=== PATIENT | male | born 1970 | race Caucasian/White ===

== ENCOUNTER 2021-05-19 18:40 | Inpatient (IN) | payer MEDICAID, SELFPAY ==
[~2021-05-19] VITALS: Ht 175.3 cm; Wt 89.8 kg
[2021-05-19 18:45] VITALS: BP_SYST 108
--- NOTE | 2021-05-19 19:17 | NUR ---
Patient to ER TENT for evaluation.
--- NOTE | 2021-05-19 19:20 | NUR ---
ER at bedside examining patient.
[2021-05-19] MEDS ORDERED: LEVOFLOXACIN IN DEXTROSE 5 % 100 ML IV ONE ×2 (19:30→21:30)
[2021-05-19] MEDS ORDERED: NACL 0.9% 2,700 ML IV ONE (19:30)
[2021-05-19] MEDS ORDERED: KETOROLAC TROMETHAMINE 30 MG VIAL IVP ONE (19:30)
[2021-05-19] MEDS ORDERED: VANCOMYCIN HCL 1,000 MG in NS 250 ML IV ONE ×2 (19:30→21:30)
[2021-05-19] MEDS ORDERED: AZITHROMYCIN 500 MG in NS 250 ML IV ONE (20:00)
--- NOTE | 2021-05-19 20:07 | NUR ---
covid 19 swab done outside in tent and sent to lab
[2021-05-19 20:15] LABS: BASOPHILS # (AUTO) 0.1 K/uL (0.0-0.2); BASOPHILS % (AUTO) 1.5 % (0.0-2.0); EOSINOPHILS % (AUTO) 0.1 % (0.0-4.0); HEMATOCRIT 45.2 % (36-54); HEMOGLOBIN 15.7 g/dL (14.0-18.0); LYMPHOCYTES % (AUTO) 11.3 % (20.5-51.5); MEAN CORPUSCULAR HEMOGLOBIN 31 pg (27-31); MEAN CORPUSCULAR HGB CONC 35 % (32-36); MEAN CORPUSCULAR VOLUME 88 fL (79.0-98.0); MONOCYTES # (AUTO) 0.4 K/uL (0.0-1.0); MONOCYTES % (AUTO) 4.3 % (1.7-9.3); NEUTROPHILS % (AUTO) 82.8 % (40.0-70.0); PLATELET COUNT (AUTO) 219 K/uL (130-430); RED BLOOD CELL COUNT(AUTO) 5.13 MIL/uL (4.2-6.2); RED CELL DISTRIBUTION WIDTH 13.3 % (9.0-15.0); WHITE BLOOD COUNT (AUTO) 8.5 K/uL (4.8-10.8)
[2021-05-19 20:28] LABS: CALCIUM 8.6 mg/dL (8.4-11.0); CREATININE 1.07 mg/dL (0.55-1.30); POTASSIUM 3.9 mmol/L (3.5-5.1)
[2021-05-19 20:33] LABS: ALBUMIN 2.9 g/dL (3.4-4.8); TOTAL BILIRUBIN 0.4 mg/dL (0.0-1.0)
--- NOTE | 2021-05-19 21:06 | NUR ---
Placed in room 06 . Placed on teletypesetter monitor, blood pressure machine and pulse oximeter. To gown for exam. Side rails up. Report given to MERLE KNUTSON
--- NOTE | 2021-05-19 21:07 | NUR ---
Came in ER ambulatory from home this 51 year old male, AAOX4, breathing spontaneously with O2 at 4L/MN VIA NC, [id number]%, mild distress noted. With chief complaints of flu symptoms, fatigue, body ache/ malaise, cough x2 weeks, No known medical/ no surgical history.
[2021-05-19] MEDS ORDERED: VANCOMYCIN HCL 1000 MG/VIAL IV ONE (21:27)
--- NOTE | 2021-05-19 21:35 | NUR ---
# 20 gauge angiocath placed to right antecubital vein. Use of asceptic technique. Opsite placed over site. Blood return noted. Blood for lab drawn from site. Flushed with 10 cc of normal saline. No evidence of infiltration noted. Patient tolerated well.
--- NOTE | 2021-05-19 21:42 | NUR ---
Patient will be admitted to care of Dr. Perez as a case of Pnuemonia. Admitted to Telemetry unit. Will go to room pending, Belongings list completed. Complete and up to date summary report printed. SBAR report to be given at bedside with opportunity for questions.
--- NOTE | 2021-05-19 21:45 | NUR ---
# 20 gauge angiocath placed to left cubital vein. Use of asceptic technique. Opsite placed over site. Blood return noted. Flushed with 10 cc of normal saline. No evidence of infiltration noted. Patient tolerated well.
--- NOTE | 2021-05-19 21:55 | NUR ---
Medications given, health teaching provided and verbalized understanding
[2021-05-19] MEDS ORDERED: AZITHROMYCIN 500 MG/VIAL (ZITHROMAX) IV ONE (22:14)
--- NOTE | 2021-05-19 22:25 | NUR ---
Patient's code status is FULL CODE, paperwork completed and placed in chart.
--- NOTE | 2021-05-19 22:35 | NUR ---
Apparently hungry, snacks offered with turkey sandwich, fruits, juice and water, able to consumed 100%, tolerated well
--- NOTE | 2021-05-19 22:39 | NUR ---
Not on maintenance medication, no reconciled meds
--- NOTE | 2021-05-19 23:51 | NUR ---
Apparently diaphoretic, vital signs stable, not in distress noted, unable to urinate
--- NOTE | 2021-05-20 00:15 | NUR ---
Asleep on bed , not in distress noted
--- NOTE | 2021-05-20 01:10 | NUR ---
CONSULTATION PAGED/CALLED Reason for Consultation: PNA Person Who was Notified: RAYNE Consulting Physician: Hasmukh ESPINOSA Rn Cvicu Specialty: Ordering Physician: Nima DALLAS
--- NOTE | 2021-05-20 02:51 | NUR ---
Seen and examined by Dr. Muller pulmo
[2021-05-20] MEDS ORDERED: cefTRIAXone 1 GM VIAL ONE (03:15)
[2021-05-20] MEDS: cefTRIAXone 1 GM in D5W 50 ML IV SCH (03:17)
--- NOTE | 2021-05-20 03:17 | NUR ---
Medication given as ordered. Still no urine, encourage to take water, verbalized understanding
--- NOTE | 2021-05-20 04:17 | NUR ---
Transferred to bed and kept comfortable.
--- NOTE | 2021-05-20 05:21 | NUR ---
CONSULTATION PAGED/CALLED Reason for Consultation: PNA Person Who was Notified: RAYNE Consulting Physician: GUILHERME Central Sterile Tech Specialty: Ordering Physician: CELENA
--- NOTE | 2021-05-20 06:00 | NUR ---
Voided freely in urinal 200ml clear yellow urine, sample sent to lab
[2021-05-20 06:47] LABS: BILIRUBIN,URINE NEGATIVE (NEGATIVE); BLOOD, URINE NEGATIVE (NEGATIVE); CLARITY/URINE CLEAR (CLEAR); COLOR,URINE YELLOW (YELLOW); GLUCOSE,URINE NEGATIVE (NEGATIVE); KETONES,URINE TRACE (NEGATIVE); LEUKOCYTE ESTERASE ,URINE NEGATIVE (NEGATIVE); NITRITE, URINE NEGATIVE (NEGATIVE); PROTEIN URINE 1+ (NEGATIVE); UROBILINOGEN,URINE 0.2 (0.2-1.0)
--- NOTE | 2021-05-20 07:10 | NUR ---
Endorsed to MERLE Sullivan in stable condition for continuity of care.
--- NOTE | 2021-05-20 07:37 | NUR ---
Lab at bedside.
--- NOTE | 2021-05-20 07:40 | NUR ---
Pt asleep in [facility] attached to monitor VSS no ditress noted at this time will continue to monitor.
[2021-05-20 07:44] LABS: BASOPHILS % (AUTO) 0.3 % (0.0-2.0); EOSINOPHILS % (AUTO) 0.1 % (0.0-4.0); HEMATOCRIT 40.5 % (36-54); HEMOGLOBIN 14.1 g/dL (14.0-18.0); LYMPHOCYTES # (AUTO) 0.8 K/uL (1.0-5.5); LYMPHOCYTES % (AUTO) 9.7 % (20.5-51.5); MEAN CORPUSCULAR HEMOGLOBIN 30 pg (27-31); MEAN CORPUSCULAR HGB CONC 35 % (32-36); MEAN CORPUSCULAR VOLUME 87 fL (79.0-98.0); MONOCYTES # (AUTO) 0.4 K/uL (0.0-1.0); MONOCYTES % (AUTO) 4.5 % (1.7-9.3); NEUTROPHILS # (AUTO) 6.9 K/uL (1.8-7.7); NEUTROPHILS % (AUTO) 85.4 % (40.0-70.0); PLATELET COUNT (AUTO) 202 K/uL (130-430); RED BLOOD CELL COUNT(AUTO) 4.67 MIL/uL (4.2-6.2); WHITE BLOOD COUNT (AUTO) 8.1 K/uL (4.8-10.8)
[2021-05-20 07:50] LABS: CALCIUM 7.9 mg/dL (8.4-11.0); CREATININE 0.71 mg/dL (0.55-1.30); POTASSIUM 3.7 mmol/L (3.5-5.1)
[2021-05-20 07:54] LABS: ALBUMIN 2.4 g/dL (3.4-4.8); TOTAL BILIRUBIN 0.4 mg/dL (0.0-1.0)
--- NOTE | 2021-05-20 08:47 | NUR ---
Breakfast tray given.
[2021-05-20 10:13] LABS: C-REACTIVE PROTEIN QUANT 13.7 mg/dL (0-0.5)
--- NOTE | 2021-05-20 11:00 | NUR ---
Spoke with Dr. Perez and updated on pt conditon. Orders recieved.
--- NOTE | 2021-05-20 11:02 | NUR ---
Called RT for breathing treatment.
--- NOTE | 2021-05-20 11:11 | NUR ---
RT at bedside.
[2021-05-20 11:14] VITALS: BP_SYST 126
[2021-05-20] MEDS: IPRATROPIUM/ALBUTEROL SULFATE 3 ML AMPUL.NEB (DUONEB) INH PRN (11:18)
--- NOTE | 2021-05-20 11:36 | NUR ---
Pt resting in [facility] VSS. Pt states he feels a lot better. Will continue to monitor.
--- NOTE | 2021-05-20 14:16 | NUR ---
Lunch tray given to pt.
[2021-05-20] MEDS ORDERED: ADENOSINE 6MG/2ML VIAL ONE (15:31)
--- NOTE | 2021-05-20 15:40 | NUR ---
Pt went into SVT with rate of 200. 6mg adenosine given IV per MD order pt converted to sinus rythm 88. MD notified. Awaiting new orders.
[2021-05-20] MEDS ORDERED: ADENOSINE 6MG/2ML VIAL IVP ONE ×2 (15:45)
--- NOTE | 2021-05-20 15:59 | NUR ---
Orders recieved per Dr. Perez.
--- NOTE | 2021-05-20 16:13 | NUR ---
RT at bedside.
--- NOTE | 2021-05-20 17:04 | NUR ---
Spoke with Dr. Perez and updated on pt status. Orders recieved.
--- NOTE | 2021-05-20 17:06 | NUR ---
Orders recieved are high flow oxygen. RT at bedside.
--- NOTE | 2021-05-20 17:28 | NUR ---
Pt in prone position on high flow oxygen 35L and 60%. Sat 92% RR12
--- NOTE | 2021-05-20 18:47 | NUR ---
Pt asleep in [facility] VSS no distress noted. Attached to monitor. Will continue to monitor.
[2021-05-20] MEDS ORDERED: methylPREDNISolone SOD SUCC 40 MG/ML VIAL IVP SCH (22:00)
--- NOTE | 2021-05-20 22:24 | NUR ---
DR. VANEGAS HERE TO SEE PATIENT.
[2021-05-20] MEDS: FAMOTIDINE PF 20 MG/2 ML VIAL IVP SCH (22:50)
[2021-05-20] MEDS: AZITHROMYCIN 500 MG in NS 250 ML IV SCH (22:50)
[2021-05-20] MEDS ORDERED: FAMOTIDINE PF 20 MG/2 ML VIAL ONE (22:57)
[2021-05-20] MEDS ORDERED: methylPREDNISolone SOD SUCC/PF 62.5 MG/ML VIAL ONE (22:59)
--- NOTE | 2021-05-20 23:59 | NUR ---
Pt asleep in [facility] vital signs holding. No distress noted at this time.
[2021-05-21] VITALS (14 sets, daily range): BP systolic 106–142
--- NOTE | 2021-05-21 01:31 | NUR ---
Pt asleep in [facility] VSS no distress noted.
[2021-05-21] MEDS: cefTRIAXone 1 GM in D5W 50 ML IV SCH (02:34)
--- NOTE | 2021-05-21 04:02 | NUR ---
Pt asleep in [facility] Vital signs holding. No distress noted at this time.
--- NOTE | 2021-05-21 06:33 | NUR ---
Lab at bedside.
--- NOTE | 2021-05-21 06:41 | NUR ---
RT at bedside.
[2021-05-21] MEDS: IPRATROPIUM/ALBUTEROL SULFATE 3 ML AMPUL.NEB (DUONEB) INH PRN (06:42)
[2021-05-21 07:06] LABS: BASOPHILS % (AUTO) 0.2 % (0.0-2.0); HEMATOCRIT 42.9 % (36-54); HEMOGLOBIN 14.8 g/dL (14.0-18.0); LYMPHOCYTES # (AUTO) 0.4 K/uL (1.0-5.5); LYMPHOCYTES % (AUTO) 4.7 % (20.5-51.5); MEAN CORPUSCULAR HEMOGLOBIN 30 pg (27-31); MEAN CORPUSCULAR HGB CONC 35 % (32-36); MEAN CORPUSCULAR VOLUME 88 fL (79.0-98.0); MONOCYTES # (AUTO) 0.2 K/uL (0.0-1.0); NEUTROPHILS # (AUTO) 7.7 K/uL (1.8-7.7); NEUTROPHILS % (AUTO) 93.1 % (40.0-70.0); PLATELET COUNT (AUTO) 250 K/uL (130-430); RED BLOOD CELL COUNT(AUTO) 4.87 MIL/uL (4.2-6.2); RED CELL DISTRIBUTION WIDTH 13.2 % (9.0-15.0); WHITE BLOOD COUNT (AUTO) 8.3 K/uL (4.8-10.8)
--- NOTE | 2021-05-21 07:22 | NUR ---
Care endorsed to Renate BLOOM
--- NOTE | 2021-05-21 07:39 | NUR ---
Holmes of care received at this time, pt resting at this time, O2 88 % with high flow O2, 65 %, 35 liters, RT notified, will cont to monitor.
[2021-05-21 07:41] LABS: CALCIUM 8.8 mg/dL (8.4-11.0); CREATININE 0.79 mg/dL (0.55-1.30); POTASSIUM 3.8 mmol/L (3.5-5.1)
--- NOTE | 2021-05-21 07:45 | NUR ---
HIGH FLOW O2 increased to 100% with 40 L, O2 92 % at this time, Dr Bianchi notified
[2021-05-21 07:49] LABS: ALBUMIN 2.4 g/dL (3.4-4.8); TOTAL BILIRUBIN 0.4 mg/dL (0.0-1.0)
--- NOTE | 2021-05-21 07:56 | NUR ---
PT PROVIDED WITH BREAKFAST TRAY
--- NOTE | 2021-05-21 08:30 | NUR ---
Spoke with Dr Bianchi and notified about low O2, order received for BIPAP IOI 18 to 8, rate 20 to keep FIO2 above 92 %. repeat blood gas in 3 to 4 hours.
--- NOTE | 2021-05-21 09:00 | NUR ---
Patient will be admitted to care of [ Dr Draper ]. Admitted to [ICU ] unit. Will go to room [01]. Belongings list completed. Complete and up to date summary report printed. SBAR report to be given at bedside with opportunity for questions.
[2021-05-21 09:29] LABS: PROTHROMBIN TIME 10.5 SECS (9.5-12.5)
[2021-05-21] MEDS ORDERED: DEXAMETHASONE SOD PHOSPHATE 10 MG/ML VIAL ONE (09:30)
[2021-05-21] MEDS ORDERED: ENOXAPARIN SODIUM 40 MG/0.4 ML SYRINGE ONE (09:31)
[2021-05-21] MEDS: ENOXAPARIN SODIUM 40 MG/0.4 ML SYRINGE SUBCUT SCH (09:49)
[2021-05-21] MEDS: DEXAMETHASONE SOD PHOSPHATE 10 MG/ML VIAL IVP SCH (09:50)
--- NOTE | 2021-05-21 10:44 | NUR ---
Admission to ICU Received pt from ER on 100% NRB on gurney, then placed on high flow O2 40L 100%. Pt able to ambulate with steady gait to bed. Pt states no pain at this time but expresses concerns being anxious about admission. Provided education regarding breathing exercises and proning, pt verbalizes understanding. IV sites right AC and left AC intact, patent, no infiltration noted. Pt noted with book bag and clothing at bedside. Pt also inquired regarding Medicare insurance, will follow up with case management. Situated patient to room and call light. No other complaints at this time.
[2021-05-21 10:46] LABS: ERYTHROCYTE SEDIMENTATION RATE 66 MM/HR (0-15)
--- NOTE | 2021-05-21 10:50 | NUR ---
rt notes 1050 pt moved to ICU 1, pt was on 15L NRB while transfer. no resp distress noted. Immediately connected to HFNC 40L/100% FIO2, pt saturating 96% and HR 81. MERLE Lan at bedside.
[2021-05-21] MEDS ORDERED: ALBUTEROL MDI INHALATION 8 GM INH INH PRN (11:00)
[2021-05-21 11:05] LABS: C-REACTIVE PROTEIN QUANT 18.6 mg/dL (0-0.5)
--- NOTE | 2021-05-21 11:05 | NUR ---
CONSULT CARDIO. CONSULTING MD: David RAMIRES PERSON NOTIFIED: JARED DIALED: [phone] ORDERED BY: Nima RAMIRES
--- NOTE | 2021-05-21 11:08 | NUR ---
CONSULT ID CONSULTING MD: Hasmukh RAMOS PERSON NOTIFIED: SEYMOURRY DIALED: [phone] ORDERED BY: Nima RAMIRES
--- NOTE | 2021-05-21 11:15 | NUR ---
CONSULT PULMO. CONSULTING MD: Tasha VANEGAS PERSON NOTIFIED: DR. VANEGAS DIALED: [phone] ORDERED BY: Nima RAMIRES
--- NOTE | 2021-05-21 11:30 | NUR ---
Dr. Bianchi return call to unit and updated on pt's admission. New orders made.
--- NOTE | 2021-05-21 12:00 | NUR ---
Pt noted prone position, saturating 100%.
--- NOTE | 2021-05-21 18:30 | NUR ---
Provided pt with dinner tray. Pt educated on breathing exercises and offered incentive spirometer which pt states he will try after dinner. No other complaints at this time.
--- NOTE | 2021-05-21 19:30 | NUR ---
PM SHIFT ASSESSMENT Patient is awake and alert. Patient is current in prone position for increased O2 sat, RR even and unlabored. SR on monitor. Skin warm and dry. IV intact, no signs of infiltration noted. Safety precautions in place, call light within reach. Will continue to monitor.
--- NOTE | 2021-05-21 19:42 | NUR ---
Endorsed plan of care to RN.
[2021-05-21] MEDS: ASCORBIC ACID 500 MG TABLET PO SCH (21:00)
[2021-05-21] MEDS: AZITHROMYCIN 500 MG in NS 250 ML IV SCH (21:01)
--- NOTE | 2021-05-21 22:25 | NUR ---
DR. VANEGAS HERE TO SEE PATIENT.
[2021-05-21] MEDS: FAMOTIDINE PF 20 MG/2 ML VIAL IVP SCH (23:24)
[2021-05-22] VITALS (23 sets, daily range): BP systolic 111–137
--- NOTE | 2021-05-22 00:05 | NUR ---
Patient sleeping in prone position. VSS. Safety precautions in place, call light within reach.
[2021-05-22] MEDS: cefTRIAXone 1 GM in D5W 50 ML IV SCH (03:16)
--- NOTE | 2021-05-22 04:30 | NUR ---
CHG CHG bath given. Patient tolerated care well. Will continue to monitor.
[2021-05-22 06:34] LABS: BASOPHILS % (AUTO) 0.2 % (0.0-2.0); HEMATOCRIT 40.2 % (36-54); HEMOGLOBIN 13.6 g/dL (14.0-18.0); LYMPHOCYTES # (AUTO) 0.6 K/uL (1.0-5.5); LYMPHOCYTES % (AUTO) 4.1 % (20.5-51.5); MEAN CORPUSCULAR HEMOGLOBIN 30 pg (27-31); MEAN CORPUSCULAR HGB CONC 34 % (32-36); MEAN CORPUSCULAR VOLUME 89 fL (79.0-98.0); MONOCYTES # (AUTO) 0.6 K/uL (0.0-1.0); MONOCYTES % (AUTO) 3.8 % (1.7-9.3); NEUTROPHILS # (AUTO) 13.5 K/uL (1.8-7.7); NEUTROPHILS % (AUTO) 91.9 % (40.0-70.0); PLATELET COUNT (AUTO) 314 K/uL (130-430); RED BLOOD CELL COUNT(AUTO) 4.54 MIL/uL (4.2-6.2); RED CELL DISTRIBUTION WIDTH 13.1 % (9.0-15.0); WHITE BLOOD COUNT (AUTO) 14.7 K/uL (4.8-10.8)
--- NOTE | 2021-05-22 07:17 | NUR ---
ENDORSEMENT Patient care endorsed to dayshift RN using nursing SBAR.
--- NOTE | 2021-05-22 07:31 | NUR ---
Nutrition Update Humberto Scale 18 noted. Pt admitted for Pneumonia Diet: regular BMI: 29.4 kg/m2 RD to follow per nutrition care standards.
[2021-05-22 07:53] LABS: C-REACTIVE PROTEIN QUANT 9.9 mg/dL (0-0.5); CREATININE 0.91 mg/dL (0.55-1.30)
[2021-05-22] MEDS: DEXAMETHASONE SOD PHOSPHATE 10 MG/ML VIAL IVP SCH (07:56)
[2021-05-22] MEDS: ENOXAPARIN SODIUM 40 MG/0.4 ML SYRINGE SUBCUT SCH (07:56)
[2021-05-22] MEDS: ASCORBIC ACID 500 MG TABLET PO SCH ×2 (07:57→21:41)
[2021-05-22] MEDS: CHOLECALCIFEROL (VITAMIN D3) 5,000 UNIT TABLET PO SCH (07:57)
[2021-05-22 09:16] LABS: ERYTHROCYTE SEDIMENTATION RATE 63 MM/HR (0-15)
--- NOTE | 2021-05-22 10:16 | NUR ---
0800 PT RECIEVED AWAKE ALERT AND ORIENTED X 3/FOLLOWS COMMANDS, HR SR, AFEBRILE BUT PT DESATURATES WITH MOVEMENT AND WITHOUT OXYGEN/O2 SAT 96% AT THIS TIME, PT VERY FIDGITY BUT COOPERATIVE//MW
--- NOTE | 2021-05-22 13:17 | NUR ---
afsaneh results reported to dr Bianchi/afsaneh ordered for a.wendy//bryan
--- NOTE | 2021-05-22 19:12 | NUR ---
1830 PT MARCO HIMSELF//STATES WILL HOLD FOR HOURS/O2 SAT NOW 97%//MW
--- NOTE | 2021-05-22 19:30 | NUR ---
REPORT RECEIVED FROM DAY SHIFT NURSE. Addendum: 05/22/21 at 2320 by Beatrice Stanton RN PT IS LYING PRONE IN BED AND ON HIGH FLOW OXYGEN AT 40L/MIN WITH FIO2 OF 80%. O2 SATS 92% AND 93%. NO SOB NOTED. FALL AND SAFETY PRECAUTIONS ARE IN PLACE. DROPLET ISOLATION FOR COVID-19 MAINTAINED.
[2021-05-22] MEDS: AZITHROMYCIN 500 MG in NS 250 ML IV SCH (21:41)
[2021-05-22] MEDS: FAMOTIDINE PF 20 MG/2 ML VIAL IVP SCH (21:42)
--- NOTE | 2021-05-22 21:42 | NUR ---
SCHEDULED HS MEDICATIONS ADMINISTERED. PT DENIES PAIN OR DISCOMFORT. FALL AND SAFETY PRECAUTIONS ARE IN PLACE.
--- NOTE | 2021-05-22 23:50 | NUR ---
CHG BATH GIVEN.
[2021-05-23] VITALS (24 sets, daily range): BP systolic 96–149
[2021-05-23] MEDS: cefTRIAXone 1 GM in D5W 50 ML IV SCH (02:29)
[2021-05-23] MEDS ORDERED: ENOXAPARIN SODIUM 40 MG/0.4 ML SYRINGE SUBCUT SCH (03:00)
--- NOTE | 2021-05-23 03:20 | NUR ---
URINE SPECIMEN COLLECTED AND SENT TO THE LAB FOR DRUG SCREEN ORDERED BY DR. Hasmukh ESPINOSA.
[2021-05-23 04:01] LABS: BARBITURATE, URINE NEGATIVE (NEG <=200); BENZODIAZEPINE, URINE NEGATIVE (NEG <=150); CANNABINOID, URINE POSITIVE (NEG <=50); COCAINE, URINE NEGATIVE (NEG <=150); METHAMPHETAMINES SCREEN,URINE POSITIVE (NEG <=500); OPIATE, URINE NEGATIVE (NEG <=100); PHENCYCLIDINE SCREEN,URINE NEGATIVE (NEG <=25); UR TRICYCLIC ANTIDEPRESSANTS NEGATIVE (NEG <=300); URINE AMPHETAMINE NEGATIVE (NEG <=500); URINE METHADONE NEGATIVE (NEG <=200); URINE OXYCODONE SCREEN NEGATIVE (NEG <=100); URINE PROPOXYPHENE SCREEN NEGATIVE (NEG <=300)
[2021-05-23] MEDS: ENOXAPARIN SODIUM 40 MG/0.4 ML SYRINGE SUBCUT SCH ×2 (04:24→16:16)
[2021-05-23 06:31] LABS: BASOPHILS % (AUTO) 0.1 % (0.0-2.0); HEMOGLOBIN 13.3 g/dL (14.0-18.0); LYMPHOCYTES # (AUTO) 0.9 K/uL (1.0-5.5); LYMPHOCYTES % (AUTO) 5.2 % (20.5-51.5); MEAN CORPUSCULAR HEMOGLOBIN 30 pg (27-31); MEAN CORPUSCULAR HGB CONC 34 % (32-36); MEAN CORPUSCULAR VOLUME 88 fL (79.0-98.0); MONOCYTES # (AUTO) 0.9 K/uL (0.0-1.0); MONOCYTES % (AUTO) 5.2 % (1.7-9.3); NEUTROPHILS # (AUTO) 16.3 K/uL (1.8-7.7); NEUTROPHILS % (AUTO) 89.5 % (40.0-70.0); PLATELET COUNT (AUTO) 325 K/uL (130-430); RED BLOOD CELL COUNT(AUTO) 4.43 MIL/uL (4.2-6.2); RED CELL DISTRIBUTION WIDTH 13.2 % (9.0-15.0); WHITE BLOOD COUNT (AUTO) 18.2 K/uL (4.8-10.8)
[2021-05-23 06:33] LABS: CALCIUM 8.6 mg/dL (8.4-11.0); CREATININE 0.78 mg/dL (0.55-1.30); POTASSIUM 3.8 mmol/L (3.5-5.1)
[2021-05-23 06:39] LABS: ALBUMIN 2.3 g/dL (3.4-4.8); TOTAL BILIRUBIN 0.2 mg/dL (0.0-1.0)
--- NOTE | 2021-05-23 07:08 | NUR ---
REPORT GIVEN TO DAY SHIFT NURSE.
--- NOTE | 2021-05-23 07:30 | NUR ---
received pt in bed, gcs 15, on high flow 02 40L 100% fio2. pt saturation 95%, speaking in complete sentences. exertion sob noted. IV intact and patent SL. encouraged pt to prone, pt refused at this time.
[2021-05-23 08:11] LABS: ERYTHROCYTE SEDIMENTATION RATE 35 MM/HR (0-15)
[2021-05-23 09:17] LABS: C-REACTIVE PROTEIN QUANT 4.1 mg/dL (0-0.5)
[2021-05-23] MEDS: CHOLECALCIFEROL (VITAMIN D3) 5,000 UNIT TABLET PO SCH (09:32)
[2021-05-23] MEDS: ASCORBIC ACID 500 MG TABLET PO SCH ×2 (09:32→20:34)
[2021-05-23] MEDS: DEXAMETHASONE SOD PHOSPHATE 10 MG/ML VIAL IVP SCH (09:33)
--- NOTE | 2021-05-23 09:45 | NUR ---
PT IN PRONE POSITION, TOLERATING WELL. NAD.
--- NOTE | 2021-05-23 10:30 | NUR ---
PT WEANED TO 35L 85% FIO2 HIGH FLOW. TOLERATING WELL. WILL CONTINUE TO MONITOR.
--- NOTE | 2021-05-23 12:04 | NUR ---
RT NOTES HFNC 35L 85%, TITRATED BY RN
--- NOTE | 2021-05-23 13:00 | NUR ---
PT WEANED TO 30L 70% FIO2, SATURATION 93-94 % SPEAKING IN FULL SENTENCES. PT EATING LUNCH. NAD. SAFETY MAINTAINED.
--- NOTE | 2021-05-23 15:46 | NUR ---
RT NOTES HFNC 25L 0.60 TITRATED BY RN
--- NOTE | 2021-05-23 16:19 | NUR ---
high flow titration to 25L at 60% fio2. pt tolerating well and keeping saturation 92% and above, speaking in full sentences.
--- NOTE | 2021-05-23 18:26 | NUR ---
high flow titrated to 25L fio2 50%, saturation remains above 92% pt speaking in full sentences and denies sob.
--- NOTE | 2021-05-23 19:45 | NUR ---
HEART RATE Pt in SVT rhythm. Dr David Perez notified. Adenosine 6mg IVP now if not effective. Adenosine 12 mg after 5 minutes to be given.
--- NOTE | 2021-05-23 19:46 | NUR ---
MD ЕЛЕНА DALLAS [phone] SPOKE WITH ELSA
[2021-05-23] MEDS ORDERED: ADENOSINE 6MG/2ML VIAL ONE (19:57)
[2021-05-23] MEDS ORDERED: ADENOSINE 6MG/2ML VIAL IVP ONE (20:00)
--- NOTE | 2021-05-23 20:00 | NUR ---
HEART RATE Adenosine 6mg IVP effective. Heart rate 82.
--- NOTE | 2021-05-23 21:00 | NUR ---
CHANGE IN CAREGIVER Care changed to Caesar BLOOM.
[2021-05-23] MEDS: FAMOTIDINE PF 20 MG/2 ML VIAL IVP SCH (21:42)
[2021-05-23] MEDS: AZITHROMYCIN 500 MG in NS 250 ML IV SCH (21:42)
[2021-05-24] VITALS (23 sets, daily range): BP systolic 92–143
[2021-05-24] MEDS: cefTRIAXone 1 GM in D5W 50 ML IV SCH (02:41)
[2021-05-24] MEDS: ENOXAPARIN SODIUM 40 MG/0.4 ML SYRINGE SUBCUT SCH ×2 (05:43→16:28)
[2021-05-24 06:23] LABS: BASOPHILS # (AUTO) 0.1 K/uL (0.0-0.2); BASOPHILS % (AUTO) 0.4 % (0.0-2.0); EOSINOPHILS % (AUTO) 0.4 % (0.0-4.0); HEMATOCRIT 38.4 % (36-54); HEMOGLOBIN 13.1 g/dL (14.0-18.0); LYMPHOCYTES # (AUTO) 1.3 K/uL (1.0-5.5); LYMPHOCYTES % (AUTO) 10.6 % (20.5-51.5); MEAN CORPUSCULAR HEMOGLOBIN 30 pg (27-31); MEAN CORPUSCULAR HGB CONC 34 % (32-36); MEAN CORPUSCULAR VOLUME 88 fL (79.0-98.0); MONOCYTES # (AUTO) 0.9 K/uL (0.0-1.0); MONOCYTES % (AUTO) 7.2 % (1.7-9.3); NEUTROPHILS # (AUTO) 10.2 K/uL (1.8-7.7); NEUTROPHILS % (AUTO) 81.4 % (40.0-70.0); PLATELET COUNT (AUTO) 360 K/uL (130-430); RED BLOOD CELL COUNT(AUTO) 4.38 MIL/uL (4.2-6.2); WHITE BLOOD COUNT (AUTO) 12.5 K/uL (4.8-10.8)
[2021-05-24 06:29] LABS: CALCIUM 8.6 mg/dL (8.4-11.0); CREATININE 0.84 mg/dL (0.55-1.30); POTASSIUM 3.7 mmol/L (3.5-5.1)
[2021-05-24 06:40] LABS: ALBUMIN 2.2 g/dL (3.4-4.8); TOTAL BILIRUBIN 0.2 mg/dL (0.0-1.0)
--- NOTE | 2021-05-24 07:00 | NUR ---
received pt in bed, on high flow 02 25L 50% fio2. pt saturation 95%, speaking in complete sentences. exertion sob noted. IV intact and patent SL.
[2021-05-24 07:13] LABS: C-REACTIVE PROTEIN QUANT 4.4 mg/dL (0-0.5)
[2021-05-24] MEDS: CHOLECALCIFEROL (VITAMIN D3) 5,000 UNIT TABLET PO SCH (08:32)
[2021-05-24] MEDS: ASCORBIC ACID 500 MG TABLET PO SCH ×2 (08:32→21:58)
[2021-05-24] MEDS: DEXAMETHASONE SOD PHOSPHATE 10 MG/ML VIAL IVP SCH (08:54)
[2021-05-24 10:37] LABS: ERYTHROCYTE SEDIMENTATION RATE 34 MM/HR (0-15)
--- NOTE | 2021-05-24 15:43 | NUR ---
Dietitian Recommendations * Recommend continuing regular diet LP, RD Please refer to Nutrition Assessment for details. Addendum: 05/24/21 at [address] Amended: Links added.
[2021-05-24] MEDS: FAMOTIDINE PF 20 MG/2 ML VIAL IVP SCH (21:58)
[2021-05-24] MEDS: AZITHROMYCIN 500 MG in NS 250 ML IV SCH (21:58)
[2021-05-25] VITALS (22 sets, daily range): BP systolic 97–165
[2021-05-25] MEDS: cefTRIAXone 1 GM in D5W 50 ML IV SCH (02:30)
[2021-05-25] MEDS: ENOXAPARIN SODIUM 40 MG/0.4 ML SYRINGE SUBCUT SCH ×2 (05:38→17:58)
[2021-05-25 06:39] LABS: BASOPHILS % (AUTO) 0.1 % (0.0-2.0); EOSINOPHILS # (AUTO) 0.4 K/uL (0.0-0.4); EOSINOPHILS % (AUTO) 3.3 % (0.0-4.0); HEMATOCRIT 36.9 % (36-54); HEMOGLOBIN 12.4 g/dL (14.0-18.0); LYMPHOCYTES # (AUTO) 2.2 K/uL (1.0-5.5); LYMPHOCYTES % (AUTO) 19.2 % (20.5-51.5); MEAN CORPUSCULAR HEMOGLOBIN 30 pg (27-31); MEAN CORPUSCULAR HGB CONC 34 % (32-36); MEAN CORPUSCULAR VOLUME 89 fL (79.0-98.0); MONOCYTES % (AUTO) 8.7 % (1.7-9.3); NEUTROPHILS # (AUTO) 7.9 K/uL (1.8-7.7); NEUTROPHILS % (AUTO) 68.7 % (40.0-70.0); PLATELET COUNT (AUTO) 387 K/uL (130-430); RED BLOOD CELL COUNT(AUTO) 4.15 MIL/uL (4.2-6.2); WHITE BLOOD COUNT (AUTO) 11.5 K/uL (4.8-10.8)
[2021-05-25 06:46] LABS: CALCIUM 8.3 mg/dL (8.4-11.0); CREATININE 0.76 mg/dL (0.55-1.30); POTASSIUM 3.7 mmol/L (3.5-5.1)
[2021-05-25 06:51] LABS: ALBUMIN 2.2 g/dL (3.4-4.8); C-REACTIVE PROTEIN QUANT 6.5 mg/dL (0-0.5); TOTAL BILIRUBIN 0.3 mg/dL (0.0-1.0)
--- NOTE | 2021-05-25 07:15 | NUR ---
OPENING NOTE: REPORT RV'CD AT BEDSIDE FROM OUTGOING RN, PATIENT RC'VD IN BED IN NO ACUTE DISTRESS AND OR DISCOMFORT. BED LOW AND LOCKED FOR SAFETY, ALL CARES ASSUMED.
[2021-05-25] MEDS: CHOLECALCIFEROL (VITAMIN D3) 5,000 UNIT TABLET PO SCH (08:46)
[2021-05-25] MEDS: DEXAMETHASONE SOD PHOSPHATE 10 MG/ML VIAL IVP SCH (08:46)
[2021-05-25] MEDS: ASCORBIC ACID 500 MG TABLET PO SCH ×2 (08:46→20:53)
--- NOTE | 2021-05-25 09:27 | NUR ---
FAMILY: MOTHER CALLED UNIT, VERBAL UPDATE GIVEN OVER PHONE, ALL QUESTIONS ANSWERED AT THIS TIME.
--- NOTE | 2021-05-25 10:00 | NUR ---
RN ROUNDS: NEW GOWN APPLIED WITH ASSISTANCE FROM PATIENT, ENCOURAGED ADL'S, NEW LINENS PLACED, BED LOW AND LOCKED WITH CALL LIGHT IN REACH, PATIENT HAS DEMONSTRATED PROPER USE OF CALL LIGHT.
--- NOTE | 2021-05-25 11:02 | NUR ---
BEDSIDE COMMODE PLACED IN ROOM, ASSISTED PATIENT TO CHAIR, TOLERATED WELL.
[2021-05-25 12:17] LABS: ERYTHROCYTE SEDIMENTATION RATE 49 MM/HR (0-15)
--- NOTE | 2021-05-25 17:59 | NUR ---
DR. DALLAS AT BEDSIDE, VERBAL REPORT GIVEN. MD TO PLACE NEW ORDERS.
[2021-05-25] MEDS ORDERED: ADENOSINE 6MG/2ML VIAL IVP ONE (19:00)
--- NOTE | 2021-05-25 19:00 | NUR ---
CALLED DR. David DALLAS CELL: [phone] HIGH HEART RATE
[2021-05-25] MEDS ORDERED: ADENOSINE 6MG/2ML VIAL ONE (19:02)
--- NOTE | 2021-05-25 19:04 | NUR ---
PER DR Marjan DALLAS GIVE ADENOSINE 6MG IVP NOW FOR HR 202
--- NOTE | 2021-05-25 19:04 | NUR ---
ADENOSINE 6MG IVP NOW FOR HR 202 GIVEN PER MD
--- NOTE | 2021-05-25 19:04 | NUR ---
NEW ORDERS PLACED BY CHARGE FOR TOPROL XL 12.5 MG NOW AND THEN BID, FIRST DOSE GIVEN TO PATIENT PO.
--- NOTE | 2021-05-25 19:05 | NUR ---
CLOSING NOTE: SBAR REPORT GIVEN AT BEDSIDE TO INCOMING NOC RN. ALL CARES ENDORSED.
[2021-05-25] MEDS ORDERED: METOPROLOL SUCCINATE 25 MG TAB.SR.24H (TOPROL XL) PO ONE (19:07)
[2021-05-25] MEDS: METOPROLOL SUCCINATE 25 MG TAB.SR.24H (TOPROL XL) PO SCH ×2 (19:09→20:52)
--- NOTE | 2021-05-25 19:25 | NUR ---
Received SBAR report from off coming RN for continuity of care. Pt awake laying in bed on cell phone. Pt on 25 L high flow NC with 50% FiO2. No s/s of distress noted at the moment. Call light within reach, safety precautions in place.
--- NOTE | 2021-05-25 20:30 | NUR ---
Pt a/o x 4, making needs known. Pt denies any pain or discomfort. Pt on 25 L high flow NC with 50%, oxygen saturations maintained above 90%. Pt ate 100% of dinner. HR has been SR since Tropol XL was given earlier during day. Call light within reach, saftey precautions in place.
[2021-05-25] MEDS: FAMOTIDINE PF 20 MG/2 ML VIAL IVP SCH (20:57)
--- NOTE | 2021-05-25 22:45 | NUR ---
Dr. Bianchi at bedside evaluating pt and discussing plan of care.
[2021-05-26] VITALS (25 sets, daily range): BP systolic 93–139
[2021-05-26] MEDS: cefTRIAXone 1 GM in D5W 50 ML IV SCH (04:14)
[2021-05-26] MEDS: ENOXAPARIN SODIUM 40 MG/0.4 ML SYRINGE SUBCUT SCH ×2 (04:15→16:09)
[2021-05-26 06:30] LABS: BASOPHILS # (AUTO) 0.1 K/uL (0.0-0.2); BASOPHILS % (AUTO) 0.4 % (0.0-2.0); EOSINOPHILS # (AUTO) 0.1 K/uL (0.0-0.4); EOSINOPHILS % (AUTO) 0.7 % (0.0-4.0); HEMATOCRIT 39.1 % (36-54); HEMOGLOBIN 13.3 g/dL (14.0-18.0); LYMPHOCYTES # (AUTO) 1.7 K/uL (1.0-5.5); LYMPHOCYTES % (AUTO) 13.3 % (20.5-51.5); MEAN CORPUSCULAR HEMOGLOBIN 30 pg (27-31); MEAN CORPUSCULAR HGB CONC 34 % (32-36); MEAN CORPUSCULAR VOLUME 89 fL (79.0-98.0); MONOCYTES # (AUTO) 0.8 K/uL (0.0-1.0); MONOCYTES % (AUTO) 6.3 % (1.7-9.3); NEUTROPHILS # (AUTO) 10.1 K/uL (1.8-7.7); NEUTROPHILS % (AUTO) 79.3 % (40.0-70.0); PLATELET COUNT (AUTO) 407 K/uL (130-430); RED BLOOD CELL COUNT(AUTO) 4.42 MIL/uL (4.2-6.2); WHITE BLOOD COUNT (AUTO) 12.8 K/uL (4.8-10.8)
[2021-05-26 06:33] LABS: CALCIUM 8.8 mg/dL (8.4-11.0); CREATININE 0.69 mg/dL (0.55-1.30); POTASSIUM 4.2 mmol/L (3.5-5.1)
--- NOTE | 2021-05-26 07:19 | NUR ---
Endorsed SBAR report to on coming RN for continuity of care.
[2021-05-26] MEDS: CHOLECALCIFEROL (VITAMIN D3) 5,000 UNIT TABLET PO SCH (08:06)
[2021-05-26] MEDS: ASCORBIC ACID 500 MG TABLET PO SCH ×2 (08:06→21:54)
[2021-05-26] MEDS: DEXAMETHASONE SOD PHOSPHATE 10 MG/ML VIAL IVP SCH (08:06)
[2021-05-26] MEDS: METOPROLOL SUCCINATE 25 MG TAB.SR.24H (TOPROL XL) PO SCH ×2 (08:08→21:54)
--- NOTE | 2021-05-26 08:19 | NUR ---
FAMILY: SPOKE WITH FATHER OVER PHONE, UPDATES GIVEN AND ALL QUESTIONS ANSWERED.
--- NOTE | 2021-05-26 09:10 | NUR ---
DR. DALLAS AT BEDSIDE ASSESSING PATIENT, VERBAL UPDATES GIVEN. PATIENT CLEARED FOR TELE UNIT IF PULMO CLEARS PATIENT FOR TRANSFER.
--- NOTE | 2021-05-26 09:53 | NUR ---
FATHER OUTSIDE OF ROOM FOR VISIT, UPDATES GIVEN AND ALL QUESTIONS ANSWERED AT THIS TIME.
--- NOTE | 2021-05-26 10:46 | NUR ---
0825 placed pt on 4l oxymizer, sat 93% rn aware. will cont to monitor. Addendum: 05/26/21 at 1047 by Hortencia Toussaint RT Amended: Links added.
[2021-05-26 12:08] LABS: ERYTHROCYTE SEDIMENTATION RATE 38 MM/HR (0-15)
--- NOTE | 2021-05-26 12:57 | NUR ---
PATIENT TOLERATING BEING ON OXYMIZER 4 LITERS, NO ACUTE DISTRESS AND OR DISCOMFORT NOTED. PATIENT ALERT AND ORIENTED TO PERSON PLACE TIME AND EVENTS.
--- NOTE | 2021-05-26 13:25 | NUR ---
DR. Marajn DALLAS MAKING ROUNDS, NO NEW ORDERS.
--- NOTE | 2021-05-26 20:00 | NUR ---
AROUSABLE ON APPROACH. AWAKE, ALERT, ORIENTED X 4. ON O2 AT 4L/MIN/NC. PT IS POSITIVE COVID. POX 91-95%. WANTED TO EAT ICE CREAM, ATE SOME ICE CREAM BROUGHT IN BY FAMILY.
[2021-05-26] MEDS: FAMOTIDINE PF 20 MG/2 ML VIAL IVP SCH (21:54)
--- NOTE | 2021-05-26 22:00 | NUR ---
TURNS SELF WELL. DENIES DISTRESS , PAIN, SOB.
[2021-05-27] VITALS (24 sets, daily range): BP systolic 102–176
--- NOTE | 2021-05-27 | NUR ---
DOZES ON AND OFF. SINUS MERRY AT TIMES.
--- NOTE | 2021-05-27 | NUR ---
AWAKE, ALERT, ORIENTED X 4. IN NO APPARENT DISTRESS. DENIES PAIN. ON O2 AT 4L/MIN/OXIMIZER. POX 95%. USES URINAL TO VOID.
--- NOTE | 2021-05-27 01:30 | NUR ---
FELT WARM, ATE SOME POPSICLES.
--- NOTE | 2021-05-27 04:00 | NUR ---
SLEPT INTERMITTENTLY. OCCASIONALLY TAKES OFF OXIMIZER. NO DISTRESS NOTED.
[2021-05-27] MEDS: ENOXAPARIN SODIUM 40 MG/0.4 ML SYRINGE SUBCUT SCH ×2 (04:12→16:00)
--- NOTE | 2021-05-27 06:00 | NUR ---
SLEPT FOR LONG PERIODS OF TIME. SINUS MERRY WHILE ASLEEP. NO COMPLAINTS OFFERED AT THIS TIME. REMAINS IN GUARDED CONDITION.
[2021-05-27 07:46] LABS: BASOPHILS % (AUTO) 0.3 % (0.0-2.0); EOSINOPHILS # (AUTO) 0.1 K/uL (0.0-0.4); EOSINOPHILS % (AUTO) 0.6 % (0.0-4.0); HEMATOCRIT 39.6 % (36-54); HEMOGLOBIN 13.3 g/dL (14.0-18.0); LYMPHOCYTES # (AUTO) 2.2 K/uL (1.0-5.5); LYMPHOCYTES % (AUTO) 15.6 % (20.5-51.5); MEAN CORPUSCULAR HEMOGLOBIN 30 pg (27-31); MEAN CORPUSCULAR HGB CONC 34 % (32-36); MEAN CORPUSCULAR VOLUME 90 fL (79.0-98.0); MONOCYTES # (AUTO) 1.1 K/uL (0.0-1.0); MONOCYTES % (AUTO) 7.7 % (1.7-9.3); NEUTROPHILS # (AUTO) 10.8 K/uL (1.8-7.7); NEUTROPHILS % (AUTO) 75.8 % (40.0-70.0); PLATELET COUNT (AUTO) 483 K/uL (130-430); WHITE BLOOD COUNT (AUTO) 14.2 K/uL (4.8-10.8)
[2021-05-27] MEDS: ASCORBIC ACID 500 MG TABLET PO SCH ×2 (08:17→21:06)
[2021-05-27] MEDS: METOPROLOL SUCCINATE 25 MG TAB.SR.24H (TOPROL XL) PO SCH ×2 (08:19→21:08)
[2021-05-27] MEDS: CHOLECALCIFEROL (VITAMIN D3) 5,000 UNIT TABLET PO SCH (08:19)
[2021-05-27] MEDS: DEXAMETHASONE SOD PHOSPHATE 10 MG/ML VIAL IVP SCH (09:01)
[2021-05-27 10:06] LABS: CREATININE 0.8 mg/dL (0.55-1.30); POTASSIUM 4.4 mmol/L (3.5-5.1)
[2021-05-27 11:05] LABS: C-REACTIVE PROTEIN QUANT 3.1 mg/dL (0-0.5)
[2021-05-27 14:17] LABS: ERYTHROCYTE SEDIMENTATION RATE 38 MM/HR (0-15)
--- NOTE | 2021-05-27 20:00 | NUR ---
ORALLY INTUBATED. SUCTIONED WITH MOD AMOUNT OF THICK YELLOW MUCUS OBTAINED. NGT FEEDING WITH NEPRO AT 30CC/HR. RESIDUAL CHECK 40CC. AIMEE PICC LINE DRSG D/I. ON DIPRIVAN AT 30 MCG/KG/MIN. JUAREZ CATH PATENT DRAINING OLIGURIC PERNELL URINE TO GRAVITY. Addendum: 05/28/21 at 0113 by Alin Giron RN WRONG ENTRY, DIFFERENT PATIENT.
[2021-05-27] MEDS: FAMOTIDINE PF 20 MG/2 ML VIAL IVP SCH (21:08)
--- NOTE | 2021-05-27 22:00 | NUR ---
DOZES ON AND OFF. DENIES PAIN, DISTRESS, SOB.
[2021-05-28] VITALS (20 sets, daily range): BP systolic 93–141
--- NOTE | 2021-05-28 01:00 | NUR ---
SOUNDLY ASLEEP. DR ESPINOSA HERE, NO NEW ORDERS GIVEN. TURNS SELF WELL.
[2021-05-28] MEDS: ENOXAPARIN SODIUM 40 MG/0.4 ML SYRINGE SUBCUT SCH ×2 (03:40→15:53)
[2021-05-28] MEDS ORDERED: ENOXAPARIN SODIUM 40 MG/0.4 ML SYRINGE ONE (03:43)
--- NOTE | 2021-05-28 04:00 | NUR ---
SLEPT FOR LONG PERIODS OF TIME. VOIDED 600CC CLEAR YELLOW URINE VIA URINAL.
--- NOTE | 2021-05-28 06:00 | NUR ---
SLEPT WELL MOST OF SHIFT. SINUS MERRY WHEN ASLEEP. REMAINS IN GUARDED CONDITION.
[2021-05-28 06:34] LABS: BASOPHILS % (AUTO) 0.3 % (0.0-2.0); EOSINOPHILS # (AUTO) 0.1 K/uL (0.0-0.4); EOSINOPHILS % (AUTO) 0.3 % (0.0-4.0); HEMATOCRIT 38.4 % (36-54); HEMOGLOBIN 12.9 g/dL (14.0-18.0); LYMPHOCYTES # (AUTO) 2.9 K/uL (1.0-5.5); LYMPHOCYTES % (AUTO) 19.1 % (20.5-51.5); MEAN CORPUSCULAR HEMOGLOBIN 30 pg (27-31); MEAN CORPUSCULAR HGB CONC 34 % (32-36); MEAN CORPUSCULAR VOLUME 89 fL (79.0-98.0); MONOCYTES # (AUTO) 1.3 K/uL (0.0-1.0); MONOCYTES % (AUTO) 8.8 % (1.7-9.3); NEUTROPHILS # (AUTO) 10.9 K/uL (1.8-7.7); NEUTROPHILS % (AUTO) 71.5 % (40.0-70.0); PLATELET COUNT (AUTO) 479 K/uL (130-430); RED CELL DISTRIBUTION WIDTH 13.2 % (9.0-15.0); WHITE BLOOD COUNT (AUTO) 15.2 K/uL (4.8-10.8)
[2021-05-28 06:43] LABS: ALBUMIN 2.3 g/dL (3.4-4.8); C-REACTIVE PROTEIN QUANT 1.4 mg/dL (0-0.5); CALCIUM 8.4 mg/dL (8.4-11.0); CREATININE 0.81 mg/dL (0.55-1.30); POTASSIUM 3.8 mmol/L (3.5-5.1); TOTAL BILIRUBIN 0.2 mg/dL (0.0-1.0)
--- NOTE | 2021-05-28 08:00 | NUR ---
AM ASSESSMENT. PT ALERT, BREATHING IN NORMAL PATTERN, MOVES INDEPENDENTLY IN BED, TRAY SERVED FOR BREAKFAST, NEEDS ASSESSED AND ATTENDED, VITAL SIGNS STABLE, CONTINUE TO MONITOR PT, ISOLATION PRECAUTION OBSERVED, COVID 19 POSITIVE.
[2021-05-28] MEDS: CHOLECALCIFEROL (VITAMIN D3) 5,000 UNIT TABLET PO SCH (08:10)
[2021-05-28] MEDS: ASCORBIC ACID 500 MG TABLET PO SCH ×2 (08:10→20:32)
[2021-05-28] MEDS: DEXAMETHASONE SOD PHOSPHATE 10 MG/ML VIAL IVP SCH (08:10)
[2021-05-28] MEDS: METOPROLOL SUCCINATE 25 MG TAB.SR.24H (TOPROL XL) PO SCH ×2 (08:10→20:34)
[2021-05-28 10:15] LABS: ERYTHROCYTE SEDIMENTATION RATE 25 MM/HR (0-15)
--- NOTE | 2021-05-28 16:00 | NUR ---
IV. IV FROM RIGHT A/C KINKED, AND REPLACED WITH A 20 GAUGE CATHETER INTO RIGHT FOREARM, WITH GOOD BLOOD RETURN OBTAINED.
--- NOTE | 2021-05-28 19:30 | NUR ---
PM SHIFT ASSESSMENT Patient is awake and alert. Patient is on oxymizer, tolerating current settings. SR on monitor. Skin warm and dry. IV intact, no signs of infiltration noted. Safety precautions in place, call light within reach. Will continue to monitor.
--- NOTE | 2021-05-28 22:33 | NUR ---
DR. VANEGAS HERE TO SEE PATIENT.
[2021-05-29] VITALS (7 sets, daily range): BP systolic 115–152
[2021-05-29] MEDS: FAMOTIDINE PF 20 MG/2 ML VIAL IVP SCH ×2 (00:20→21:35)
--- NOTE | 2021-05-29 01:56 | NUR ---
ADMISSION NOTE / TRANSFER FROM ICU Received patient from ICU via wheelchair. Patient admitted with diagnosis of PNA. Patient is awake, alert, oriented X. Patient oriented to hospital room, call light, toileting, pain management and safety-teach back done. Patient informed that Giovanna will be his nurse and that his room number is 133B. Call light within reach.
[2021-05-29] MEDS ORDERED: ENOXAPARIN SODIUM 40 MG/0.4 ML SYRINGE ONE (04:35)
--- NOTE | 2021-05-29 08:00 | NUR ---
Opening Note Patient alert oriented x 4, patient oriented to room, call light within reach, discussed pain management, and safety checks. Discussed oxygen and that the patient needed to keep oximizer on, o2 saturation at 95% with 5 liters.
[2021-05-29] MEDS: CHOLECALCIFEROL (VITAMIN D3) 5,000 UNIT TABLET PO SCH (08:03)
[2021-05-29] MEDS: METOPROLOL SUCCINATE 25 MG TAB.SR.24H (TOPROL XL) PO SCH ×2 (08:03→21:34)
[2021-05-29] MEDS: ASCORBIC ACID 500 MG TABLET PO SCH ×2 (08:03→21:34)
[2021-05-29] MEDS: DEXAMETHASONE SOD PHOSPHATE 10 MG/ML VIAL IVP SCH (08:05)
--- NOTE | 2021-05-29 12:00 | NUR ---
Rounding Note Patients friend brought in icecream, charge nurse aware. Patient stable at this time, no new complaints.
--- NOTE | 2021-05-29 14:04 | NUR ---
Nutrition F/U Admitting Diagnosis: Pneumonia Medical History Comment: PMH: none per EMR review Pt also found w/ severe respiratory failure 2/2 COVID-19 infection and sepsis per physician notes SARS-CoV-2 Ag (Rapid) Negative 05/19; (PCR) Positive 05/20 Subjective Information: Pt is now out of ICU, in room 133 A. Pts medical condition has improved and pt has been cooperative w/ proning and medical treatment. Per EMR review, pt is on 4L oxymizer, abdomen is soft and nondistended w/ active bowel sounds and BM 05/29 x1. Humberto scale: 20. No skin issues/edema documented. Pt has been eating 100% of meals and is likely meeting adequate nutrition. Current diet remains adequate and appropriate. Current Diet Order/Nutrition Support: Regular x9 days Pertinent Medications: zinc, VIT D3, VIT C, decadron, lovenox Pertinent Labs 05/28 WBC 15.2 H Height: 5 feet, 9.00 inches Weight: 198 pounds/ 89.224043 kilograms (05/24) --stable Body Mass Index: 29.24 kg/m2 Andrews/Adjusted Body Weight: 160#/73 kg Estimated Energy Expenditure (kcals/day) 5817-0573 kcal/day (30-35 kcal/kg CBW d/t sepsis) Estimated Protein Required (g/day) 135-180 gm/day (1.5-2 gm/kg CBW d/t sepsis) Estimated Fluid Required (l/day) 2.7-3.2 L/day (1 ml/kcal/day for maintenance) Problem/Etiology/Signs/Symptoms Increased nutritional needs related to metabolic demands as evidenced by estimated nutritional requirements for sepsis. (*ongoing) Expected Outcomes/Goals - Monitor appetite and PO intakes w/ goal of pt meeting at least 80% of estimated nutritional needs, labs trending WNL, normal GI function, and skin integrity/wt maintenance Dietitian Recommendations * Recommend continuing regular diet, add double servings every lunch and dinner. Follow Up Mod Risk F/U in 3-5 days
--- NOTE | 2021-05-29 14:09 | NUR ---
Dietitian Recommendations * Recommend continuing regular diet, add double servings every lunch and dinner. Please see Nutrition F/U note for details. SANDRA MACDONALD
--- NOTE | 2021-05-29 18:40 | NUR ---
Closing Note Patient is awake and alert. Patient is on oxymizer, tolerating current settings. Sinus bradyon monitor. Skin warm and dry. IV intact, no signs of infiltration noted. Safety precautions in place, call light within reach. Will continue to monitor.
--- NOTE | 2021-05-29 20:00 | NUR ---
AWAKE, ALERT, ORIENTED X4. IN NO APPARENT DISTRESS. DENIES PAIN. ON O2 AT 4L/MIN/OXIMIZER. POX 96%. ASKED FOR MORE SALAD AND BROWNIE TO EAT. BRP.
--- NOTE | 2021-05-29 20:30 | NUR ---
DR VANEGAS HERE EARLIER. ORDERED TO PUT A LONGER CORD FOR OXIMIZER SO PT COULD WALK AROUND.
--- NOTE | 2021-05-29 22:30 | NUR ---
BRP. SELF HS CARE IN BATHROOM. RIGHT FOREARM SALINE LOCK INADVERTENTLY DISLODGED. SALINE LOCK STARTED IN RIGHT HAND GAUGE #22 USING ASEPTIC TECHNIQUE.
[2021-05-30] VITALS: BP_SYST 143
--- NOTE | 2021-05-30 | NUR ---
OCCASIONALLY TAKES OFF OXIMIZER. DENIES SOB.
[2021-05-30] MEDS: ENOXAPARIN SODIUM 40 MG/0.4 ML SYRINGE SUBCUT SCH (03:50)
--- NOTE | 2021-05-30 04:00 | NUR ---
SLEPT FOR LONG PERIODS OF TIME. EASILY AROUSABLE FOR MEDS. BRP. TURNS SELF WELL.
--- NOTE | 2021-05-30 06:00 | NUR ---
SLEPT WELL MOST OF SHIFT. NO COMPLAINT OFFERED AT THIS TIME. REMAINS IN GUARDED CONDITION.
--- NOTE | 2021-05-30 08:00 | NUR ---
OPENING NOTES PATIENT AAOX 4. VITALS SIGSN STABLE. AFEBRILE. HAS IV ACCESS ON RT HAND #22. SALINE LOCK PATENT. NO S/S OF DISTRESS NOR PAIN NOTED. VERBALIZED WANTS TO SPEAK TO THE HEAVY EQUIPMENT OPERATING ENGINEER SAAD REGARDING OXYGEN FOR HOME. CALL LIGHTS WITHIN REACH. BED LOW POSITION, ALARMED AND LOCKED. WILL CONTINUE TO MONITOR PATIENTS STATUS.
[2021-05-30] MEDS: ASCORBIC ACID 500 MG TABLET PO SCH ×2 (09:00→22:48)
[2021-05-30] MEDS: DEXAMETHASONE SOD PHOSPHATE 10 MG/ML VIAL IVP SCH (09:41)
[2021-05-30] MEDS: CHOLECALCIFEROL (VITAMIN D3) 5,000 UNIT TABLET PO SCH (09:42)
[2021-05-30] MEDS: METOPROLOL SUCCINATE 25 MG TAB.SR.24H (TOPROL XL) PO SCH ×2 (09:42→22:48)
[2021-05-30 10:00] VITALS: BP_SYST 124
[2021-05-30 12:00] VITALS: BP_SYST 135
--- NOTE | 2021-05-30 15:36 | NUR ---
TRIED TO DO OXYGEN SATURATION LYING WITHOUT OXYGEN 88%, SITTING DOWN 89%. STANDING 89%, WALKING 90%, WALKING IN TWO STEP WITHOUT OXYGEN 91 AND WALKING FROM WINDOW TO THE NEAR THE DOOR 90% WITH SLIGHT SOB NOTED. THEN SITTING DOWN 90% OF OXYGEN WITH NO OXYGEN ON IT. BUT I NEED MY OXYGEN WHEN I GO HOME. SAAD ROLLER LEVELER OPERATOR WILL ARRANGED THE OXYGEN FOR TOMORROW. WITH HOME HEALTH.
[2021-05-30 16:39] VITALS: BP_SYST 148
--- NOTE | 2021-05-30 18:48 | NUR ---
CLOSING NOTES PATIENT AAOX 4. STILL WITH OXYGEN 5 LIERS OF OXIMIZER. LUNGS BILATERALLY DIMINISHED AT THE BASES. ABDOMEN SOFT AND NON DISTENDED. HAS IV ACCESS ON THE RT HAND #22. SALINE LOCK. PATENT/DRY. NO S/S OF DISTRESS NOR PAIN NOTED. AWAITING FOR OXYGEN TO BE ARRANGED BY [facility]OSPICE HOME CARE COORDINATOR FOR POSSIBLE DISCHARGE HOME WITH HOME HEALTH WITH OXYGEN.
--- NOTE | 2021-05-30 19:33 | NUR ---
Dr. Muller at bedside with patient. Per MD. patient able to be discharged tomorrow with O2 if needed. Try to wean off oxygen tonight with help of RT.
--- NOTE | 2021-05-30 19:50 | NUR ---
OPENING NOTES PATIENT LAYING IN BED WITH RESPIRATIONS EVEN AND UNLABORED. PT ON 2L O2 VIA NC. NO SIGNS OF DISTRESS NOTED. BED IN HIGH POSITION. PT EDUCATED ON SAFETY AND KEEPING BED IN LOWEST POSITION. PT VERBALIZED UNDERSTANDING BUT STATES HE "WANTED TO BE CLOSER TO SEE THE TV". PT EXPLAINS THAT RIGHT WRIST IV 20G DISLODGED AND CAME OUT. FOUND IV CATHETER IN TRASH WITH TIP INTACT. DISPOSED OF PROPERLY IN THE SHARPS CONTAINER. PT AMBULATORY WITH STEADY GAIT. PT STATES HE DOES JUMPING JACKS AND USES HIS INCENTIVE SPIROMETER MANY TIMES AN HOUR. PT DEMONSTRATED USING THE IS CORRECTLY. BED IN LOWEST AND LOCKED POSITION. CALL LIGHT WITHIN REACH. SAFETY PRECAUTIONS IN PLACE. WILL CONTINUE TO MONITOR.
[2021-05-30 20:15] VITALS: BP_SYST 148
--- NOTE | 2021-05-30 20:21 | NUR ---
NEW IV INSERTED LEFT FOREARM 22G IV INSERTED. SALINE LOCKED. FLUSHES WELL. BLOOD RETURN. PT TOLERATED WELL. WRAPPED IV WITH GAUZE PER PT REQUEST SO IT DOESN'T "GET CAUGHT ON ANYTHING".
[2021-05-30] MEDS: FAMOTIDINE PF 20 MG/2 ML VIAL IVP SCH (22:48)
[2021-05-31 00:50] VITALS: BP_SYST 132
--- NOTE | 2021-05-31 03:35 | NUR ---
ROUNDS PT LAYING IN BED ON STOMACH PER DR MAYO SUGGESTION. PT AWAKE WITH RESPIRATIONS EVEN AND UNLABORED ON RA. PT IS TOLERATING BEING OFF THE O2 VIA NC. OXYGEN SATURATIONS AT 93% ON RA. BED IN LOWEST AND LOCKED POSITION. CALL LIGHT WITHIN REACH. WILL CONTINUE TO MONITOR.
[2021-05-31] MEDS: ENOXAPARIN SODIUM 40 MG/0.4 ML SYRINGE SUBCUT SCH ×2 (03:47→16:28)
[2021-05-31 06:49] LABS: BASOPHILS # (AUTO) 0.2 K/uL (0.0-0.2); BASOPHILS % (AUTO) 0.9 % (0.0-2.0); EOSINOPHILS % (AUTO) 0.1 % (0.0-4.0); HEMATOCRIT 39.7 % (36-54); HEMOGLOBIN 13.2 g/dL (14.0-18.0); LYMPHOCYTES # (AUTO) 3.3 K/uL (1.0-5.5); LYMPHOCYTES % (AUTO) 16.7 % (20.5-51.5); MEAN CORPUSCULAR HEMOGLOBIN 30 pg (27-31); MEAN CORPUSCULAR HGB CONC 33 % (32-36); MEAN CORPUSCULAR VOLUME 90 fL (79.0-98.0); MONOCYTES % (AUTO) 5.2 % (1.7-9.3); NEUTROPHILS % (AUTO) 77.1 % (40.0-70.0); PLATELET COUNT (AUTO) 430 K/uL (130-430); RED BLOOD CELL COUNT(AUTO) 4.43 MIL/uL (4.2-6.2); RED CELL DISTRIBUTION WIDTH 13.5 % (9.0-15.0); WHITE BLOOD COUNT (AUTO) 19.5 K/uL (4.8-10.8)
--- NOTE | 2021-05-31 06:49 | NUR ---
CLOSING NOTES PATIENT LAYING IN BED ON STOMACH. NO SIGNS OF DISTRESS NOTED. RESPIRATIONS EVEN AND UNLABORED. BED IN LOWEST AND LOCKED POSITION. LFA IV 22G INTACT. NO SIGNS OF INFILTRATION NOTED. HEART MONITOR LEADS OFF PATIENT. EDUCATED PT ON KEEPING LEADS ON AT ALL TIMES. PT VERBALIZED UNDERSTANDING. LEADS PLACED. ALL NEEDS MET THROUGHOUT THE NIGHT. BED IN LOWEST AND LOCKED POSITION. CALL LIGHT WITHIN REACH. SAFETY PRECAUTIONS IN PLACE. WILL ENDORSE TO DAY RN.
[2021-05-31 07:32] LABS: ALBUMIN 2.6 g/dL (3.4-4.8); CALCIUM 8.8 mg/dL (8.4-11.0); CREATININE 0.85 mg/dL (0.55-1.30); POTASSIUM 4.1 mmol/L (3.5-5.1); TOTAL BILIRUBIN 0.2 mg/dL (0.0-1.0)
--- NOTE | 2021-05-31 08:00 | NUR ---
OPENING NOTES PATIENT AAOX 4. LUNGS BILATERALLY DIMINISHED BREATH SOUNDS. ABDOMEN SOFT AND NON DISTENDED. HAS IV ACCESS ON THE LEFT FOREARM #22. SALINE LOCK. PATENT/DRY. CALL LIGHTS WITHIN REACH. BED LOW POSITION, ALARMED AND LOCKED. PATIENT AMUBLATORY. VERBALIZED WANTS TO GO HOME IF POSSIBLE TODAY. VITALS SIGNS STABLE. AND AFEBRILE.
[2021-05-31] MEDS: CHOLECALCIFEROL (VITAMIN D3) 5,000 UNIT TABLET PO SCH (09:31)
[2021-05-31] MEDS: DEXAMETHASONE SOD PHOSPHATE 10 MG/ML VIAL IVP SCH (09:31)
[2021-05-31] MEDS: ASCORBIC ACID 500 MG TABLET PO SCH ×2 (09:31→22:11)
[2021-05-31] MEDS: METOPROLOL SUCCINATE 25 MG TAB.SR.24H (TOPROL XL) PO SCH ×2 (09:48→22:24)
--- NOTE | 2021-05-31 12:32 | NUR ---
TIMBER SELECTOR spoke with Pt. over the phone due to COVID positive restriction. Pt. is requesting a letter of admission to [facility], in addition to information on how to follow up with his pending [facility] application. Pt. was provided with [employer] A number for follow up, he reported that he will likely no longer be employed, [employer] flyer was included in packet for General Relief assistance and to monitor his [facility] case status. Pt. requested that his SSN be included in his letter, therefore per his verbal request TIMBER SELECTOR added SSN to one letter and a duplicate without SSN. TIMBER SELECTOR consulted with Pt. CM and Pt. is pending D/C order, CM has linked client with [facility] and to provide O2. TIMBER SELECTOR to remain available should the need arise.
[2021-05-31 13:15] VITALS: BP_SYST 150
--- NOTE | 2021-05-31 15:00 | NUR ---
PATIENT WENT OUTSIDE THE ROOM PATIO AREA. VERBALIZED JUST WANT FRESH AIR AND SUN. BUT INFORMED PATIENT NOT ALLOWED TO GO TO DUE TO COVID POSITIVE. PATIENT WENT UP AND WENT BACK TO BED, VITALS SIGNS STABLE. AFEBRILE. STILL WAITING FOR DR DALLAS TO COME.
--- NOTE | 2021-05-31 15:37 | NUR ---
PATIENT STABLE. AWAITING FOR DR DALLAS TO COME TO SIGNED THE OXYGEN REQUEST, PER SAAD WARP TYING MACHINE KNOTTER.
[2021-05-31 16:17] VITALS: BP_SYST 134
--- NOTE | 2021-05-31 19:30 | NUR ---
OPENING NOTE PATIENT IS AWAKE ALERT ORIENTED X2 AGITATED NOT COOPERATIVE RAISING BED HIGH WITH NURSE INFORMING HE CAN FALL AND INJURE SELF PATIENT IS NOT COMPLIANT INFORMED RAW CHEESE WORKER LANA OF PATIENTS BEHAVIOR. IV SITE PATENT LFA 22 GAUGE. OXYGEN ON 5 LPM BY N/C NO SIGNS OF RESPIRATORY DISTRESS OR PAIN. CALL LIGHTS IN REACH.
[2021-05-31 20:00] VITALS: BP_SYST 163
[2021-05-31] MEDS: FAMOTIDINE PF 20 MG/2 ML VIAL IVP SCH (22:11)
--- NOTE | 2021-06-01 | NUR ---
PATIENT IS COMFORTABLE RESTING IN BED. NO SIGNS OF PAIN OR RESPIRATORY DISTRESS. BED IS LOW AND CALL LIGHTS WITHIN REACH.
[2021-06-01 00:11] VITALS: BP_SYST 140
--- NOTE | 2021-06-01 04:00 | NUR ---
PATIENT IS COMFORTABLE ASLEEP NO SIGNS OF PAIN OR DISTRESS. BED IS LOW AND CALL LIGHTS WITHIN REACH.
[2021-06-01] MEDS: ENOXAPARIN SODIUM 40 MG/0.4 ML SYRINGE SUBCUT SCH ×2 (04:24→17:01)
--- NOTE | 2021-06-01 06:40 | NUR ---
CLOSING NOTE PATIENT IS ASLEEP COMFORTABLE ALERT ORIENTED X2 AGITATED AT TIMES. IV SITE LFA GAUGE 22 PATENT AND INTACT. BED IS LOW AND CALL LIGHTS IN REACH. WILL ENDORSE TO NEXT SHIFT MD DR. ESPINOSA INFORMED LAST NIGHT TO HAVE DAY SHIFT CONTACT ID DOCTOR TO DISCHARGE ISOLATION AND COORDINATE DISCHARGE TO HOME WITH OXYGEN.
[2021-06-01 06:54] LABS: BASOPHILS # (AUTO) 0.1 K/uL (0.0-0.2); BASOPHILS % (AUTO) 0.7 % (0.0-2.0); EOSINOPHILS % (AUTO) 0.1 % (0.0-4.0); HEMOGLOBIN 13.4 g/dL (14.0-18.0); MEAN CORPUSCULAR HEMOGLOBIN 30 pg (27-31); MEAN CORPUSCULAR HGB CONC 33 % (32-36); MEAN CORPUSCULAR VOLUME 90 fL (79.0-98.0); MONOCYTES % (AUTO) 5.4 % (1.7-9.3); NEUTROPHILS # (AUTO) 14.4 K/uL (1.8-7.7); NEUTROPHILS % (AUTO) 77.8 % (40.0-70.0); PLATELET COUNT (AUTO) 399 K/uL (130-430); RED BLOOD CELL COUNT(AUTO) 4.45 MIL/uL (4.2-6.2); RED CELL DISTRIBUTION WIDTH 13.5 % (9.0-15.0); WHITE BLOOD COUNT (AUTO) 18.5 K/uL (4.8-10.8)
[2021-06-01 08:00] VITALS: BP_SYST 127
--- NOTE | 2021-06-01 08:00 | NUR ---
Initial Note Patient is awake and oriented x 3, occasional confusion and forgetfulness. Patient saturating 93% on 2 L via N/C. Able to ambulate to restroom as needed. Reoriented to call light and encouraged to use. Bed in lowest position.
[2021-06-01 08:09] LABS: ANION GAP 7 (5-15); CALCIUM 8.9 mg/dL (8.4-11.0); CHLORIDE 104 mmol/L (98-107); GLUCOSE 94 mg/dL (70-99); POTASSIUM 4.5 mmol/L (3.5-5.1); SODIUM SERUM 140 mmol/L (136-145)
[2021-06-01 08:10] LABS: ALANINE AMINOTRANSFERASE 97 U/L (12-78); ALBUMIN 2.7 g/dL (3.4-4.8); ASPARTATE AMINOTRANSFERASE 19 U/L (10-37); CREATININE 0.85 mg/dL (0.55-1.30); TOTAL BILIRUBIN 0.2 mg/dL (0.0-1.0); UREA NITROGEN, BLOOD 24 mg/dL (8-21)
[2021-06-01 08:58] LABS: GFR AFRICAN AMERICAN 123 mL/min (>90)
[2021-06-01] MEDS ORDERED: DEXAMETHASONE SOD PHOSPHATE 10 MG/ML VIAL IVP SCH (09:00)
[2021-06-01] MEDS: CHOLECALCIFEROL (VITAMIN D3) 5,000 UNIT TABLET PO SCH (09:34)
[2021-06-01] MEDS: METOPROLOL SUCCINATE 25 MG TAB.SR.24H (TOPROL XL) PO SCH ×2 (09:35→20:35)
[2021-06-01] MEDS: ASCORBIC ACID 500 MG TABLET PO SCH ×2 (09:36→20:29)
[2021-06-01 09:48] LABS: C-REACTIVE PROTEIN QUANT < 0.2 mg/dL (0-0.5)
[2021-06-01 11:05] VITALS: BP_SYST 127
[2021-06-01 11:05] LABS: ERYTHROCYTE SEDIMENTATION RATE 9 MM/HR (0-15)
--- NOTE | 2021-06-01 11:39 | NUR ---
Notes Spoke with Dr. Muller regarding patient status. Will refer to infection control per MD.
--- NOTE | 2021-06-01 12:00 | NUR ---
Notes Patient's O2 saturation after ambulating on room air 88%. Patient saturating 93% on 2 L. No pain or distress noted. Patient wanting to receive more information regarding Medical, ILEANA Carmichael notified. Bed left in lowest position and call light within reach.
[2021-06-01 12:18] VITALS: BP_SYST 162
[2021-06-01] MEDS ORDERED: METO-540 PO (13:41)
[2021-06-01] MEDS ORDERED: DEC4 PO (13:41)
[2021-06-01] MEDS ORDERED: APIX5TAB PO (13:41)
--- NOTE | 2021-06-01 16:00 | NUR ---
Notes Patient's bed in highest position. Educated patient on safety and fall precautions, lowered bed to lowest position and instructed to keep bed down to prevent falls. Patient states it is not fun to keep bed low. Will continue to monitor and teach on safety. Spoke with [facility] - traffic representative Abbi states she needs further information for patient - CM Jany notified. Patient wanting to go home. Bed locked in lowest position and call light in reach.
[2021-06-01 16:13] VITALS: BP_SYST 112
--- NOTE | 2021-06-01 16:25 | NUR ---
Referral for home O2 sent to [facility] [phone] or [phone]
--- NOTE | 2021-06-01 18:05 | NUR ---
Notes Delroy Go reports order for home oxygen sent. States will deliver to patient's home between 1900 and 2100. Will endorse to mortgage loan funder nurse.
--- NOTE | 2021-06-01 18:42 | NUR ---
Closing Note Patient sitting up in hospital bed, bed in lowest position. Patient is speaking with his father who will wait for the oxygen at home and bring it to the hospital for patient upon discharge. No pain or distress, no shortness of breath. Call light within reach and encouraged to call. Will endorse to night nurse.
--- NOTE | 2021-06-01 19:15 | NUR ---
OPENING NOTES PATIENT RESTING, NO SIGNS OF SOB. CALL LIGHT WITHIN REACH, BED LOCKED, BED ALARM ON, BED AT LOWEST POSITION. PATIENT DEMONSTRATES PROPER USAGE OF CALL LIGHT. RECEIVED REPORT THAT PATIENT HAS ALREADY PULLED OUT IV AND ID BAND. FALL, SAFETY, RESPIRATORY, ASPIRATION, AND ISOLATION PRECAUTIONS IN PLACE. RECEIVED REPORT THAT FATHER IS PICKING UP PATIENT AFTER RECEIVING O2 TANK FROM [phone] AT HOME. PLAN OF CARE DISCUSSED WITH PATIENT. WILL CONTINUE TO MONITOR.
[2021-06-01 20:51] VITALS: BP_SYST 148
--- NOTE | 2021-06-01 21:00 | NUR ---
SPOKE TO FATHER THROUGH PATIENT'S CELL PHONE. FATHER ON HIS WAY. PATIENT VERBALIZES UNDERSTANDING OF DISCHARGE INSTRUCTIONS. WILL FOLLOW THROUGH.
--- NOTE | 2021-06-01 21:26 | NUR ---
D/C Patient Patient given medication reconciliation form and D/C instructions. Exit Care provided. Patient and father verbalized understanding. MD discussed with patient the results and treatment provided. Ambulatory with steady gait for discharge to home on wheelchair. Patient in stable condition, O2 saturation of 94% on room air, ID band removed. Rx of medication given. Patient educated on oxygen management. All belongings sent with patient.
== END 2021-06-01 21:36 | disposition home health service (06) | DRG 720 ==
LOC: SED 18:40 → STU 21:41 → SIC 05-21 09:00 → STU 05-29 02:08
PROVIDERS: ADMIT Preventive Medicine Preventive Medicine/Occupational Environmental Medicine; ATTEND Preventive Medicine Preventive Medicine/Occupational Environmental Medicine
DX: A41.9 Sepsis, unspecified organism (principal); J96.01 Acute respiratory failure with hypoxia; J12.82 Pneumonia due to coronavirus disease 2019; U07.1 COVID-19; E43 Unspecified severe protein-calorie malnutrition; E87.1 Hypo-osmolality and hyponatremia; E88.09 Other disorders of plasma-protein metabolism, not elsewhere classified; I10 Essential (primary) hypertension; E83.52 Hypercalcemia; J44.0 Chronic obstructive pulmonary disease with (acute) lower respiratory infection; E11.65 Type 2 diabetes mellitus with hyperglycemia; D64.9 Anemia, unspecified; R74.01 Elevation of levels of liver transaminase levels; Z79.01 Long term (current) use of anticoagulants; Z68.29 Body mass index [BMI] 29.0-29.9, adult
CPT/HCPCS: 36415; 36600; 71045; 80048; 80053; 80307; 81003; 82728; 82803-TC; 83605; 83615; 83880; 85025; 85379; 85384; 85610-TC; 85651-TC; 85730-TC; 86140; 87040-TC; 87081; 93005; 94010; 94640; 94760; 96365; 96368; 96375; 99291; G0378; J0153; J0456; J0696; J1100; J1650; J1885; J1956; J2930; J3370; J3490; J7050; J7060; U0003

== ENCOUNTER 2021-10-11 11:10 | Emergency (ER) | payer MEDICAID, SELFPAY ==
[~2021-10-11] VITALS: Ht 177.8 cm; Wt 95.3 kg
[~2021-10-11 11:10] MED LIST: APIX5TAB PO; DEC4 PO; METO-540 PO
[2021-10-11 11:32] VITALS: BP_SYST 153
--- NOTE | 2021-10-11 11:35 | NUR ---
Patient to ER bed 05 to gown for evaluation. Side rails up.
[2021-10-11] MEDS ORDERED: cephALEXin 500 MG CAPSULE PO ONE (13:00)
[2021-10-11] MEDS ORDERED: LIDOCAINE 2%, 20 ML MDV INJ ONE (13:00)
--- NOTE | 2021-10-11 13:23 | NUR ---
AFTER THE I AND D WRAPED WITH SARAH
[2021-10-11] MEDS ORDERED: SULF1TAB48 PO (13:27)
[2021-10-11] MEDS ORDERED: CEPH-548 PO (13:27)
[2021-10-11 13:37] VITALS: BP_SYST 135
--- NOTE | 2021-10-11 13:39 | NUR ---
Patient given written and verbal discharge instructions and verbalizes understanding. DARWIN DANIELS MD discussed with patient the results and treatment provided. Patient in stable condition. ID arm band removed. Rx of KEFLEX, BACTRIM given. Patient educated on pain management and to follow up with PMD. Pain Scale 1. Opportunity for questions provided and answered. Medication side effect fact sheet provided.
== END 2021-10-11 13:39 | disposition home or self-care (01) ==
LOC: SED 11:10
DX: L02.415 Cutaneous abscess of right lower limb (principal); Z79.899 Other long term (current) drug therapy
CPT/HCPCS: 10060; 82962; 99284; J2001

== ENCOUNTER 2022-03-25 09:24 | Inpatient (IN) | payer MEDICAID ==
[~2022-03-25] VITALS: Ht 177.8 cm; Wt 99.8 kg
[~2022-03-25 09:24] MED LIST changes: +CEPH-548 PO; +SULF1TAB48 PO
[2022-03-25 09:33] VITALS: BP_SYST 137
[2022-03-25 10:17] LABS: BASOPHILS # (AUTO) 0.1 K/uL (0.0-0.2); BASOPHILS % (AUTO) 0.5 % (0.0-2.0); EOSINOPHILS # (AUTO) 0.3 K/uL (0.0-0.4); EOSINOPHILS % (AUTO) 2.2 % (0.0-4.0); HEMATOCRIT 45.2 % (36-54); HEMOGLOBIN 15.4 g/dL (14.0-18.0); LYMPHOCYTES # (AUTO) 2.1 K/uL (1.0-5.5); LYMPHOCYTES % (AUTO) 15.4 % (20.5-51.5); MEAN CORPUSCULAR HEMOGLOBIN 30 pg (27-31); MEAN CORPUSCULAR HGB CONC 34 % (32-36); MEAN CORPUSCULAR VOLUME 88 fL (79.0-98.0); MONOCYTES % (AUTO) 7.7 % (1.7-9.3); NEUTROPHILS # (AUTO) 10.1 K/uL (1.8-7.7); NEUTROPHILS % (AUTO) 74.2 % (40.0-70.0); PLATELET COUNT (AUTO) 217 K/uL (130-430); RED BLOOD CELL COUNT(AUTO) 5.16 MIL/uL (4.2-6.2); RED CELL DISTRIBUTION WIDTH 13.3 % (9.0-15.0); WHITE BLOOD COUNT (AUTO) 13.6 K/uL (4.8-10.8)
[2022-03-25 10:28] LABS: CALCIUM 8.4 mg/dL (8.4-11.0); CREATININE 0.97 mg/dL (0.55-1.30); POTASSIUM 4.1 mmol/L (3.5-5.1)
[2022-03-25 10:32] LABS: ALBUMIN 3.5 g/dL (3.4-4.8); C-REACTIVE PROTEIN QUANT 3.5 mg/dL (0-0.5); TOTAL BILIRUBIN 0.4 mg/dL (0.0-1.0)
[2022-03-25] MEDS ORDERED: CLINDAMYCIN 600 MG in D5W 50 ML IV ONE (11:00)
[2022-03-25] MEDS ORDERED: HYDROcodone/ACETAMIN 10-325 MG TAB PO ONE (11:30)
[2022-03-25] MEDS ORDERED: CLINDAMYCIN 600 mg/50mL D5W 50 ML IV ONE (11:54)
[2022-03-25] MEDS ORDERED: ONDANSETRON HCL 4 MG/2 ML VIAL IVP PRN (15:30)
[2022-03-25 17:04] LABS: BARBITURATE, URINE NEGATIVE (NEG <=200); BENZODIAZEPINE, URINE NEGATIVE (NEG <=150); CANNABINOID, URINE POSITIVE (NEG <=50); COCAINE, URINE NEGATIVE (NEG <=150); METHAMPHETAMINES SCREEN,URINE POSITIVE (NEG <=500); URINE AMPHETAMINE POSITIVE (NEG <=500); URINE METHADONE NEGATIVE (NEG <=200)
[2022-03-25 17:05] LABS: OPIATE, URINE POSITIVE (NEG <=100); PHENCYCLIDINE SCREEN,URINE NEGATIVE (NEG <=25); UR TRICYCLIC ANTIDEPRESSANTS NEGATIVE (NEG <=300); URINE OXYCODONE SCREEN NEGATIVE (NEG <=100); URINE PROPOXYPHENE SCREEN NEGATIVE (NEG <=300)
[2022-03-25 17:30] VITALS: BP_SYST 128
[2022-03-25 17:50] VITALS: BP_SYST 128
[2022-03-25] MEDS ORDERED: CLINDAMYCIN 600 MG in D5W 50 ML IV SCH (18:00)
[2022-03-25 20:00] VITALS: BP_SYST 140
[2022-03-25] MEDS: HYDROmorphone 2 MG/ML VIAL IVP PRN (20:30)
[2022-03-26 00:27] VITALS: BP_SYST 136
[2022-03-26] MEDS ORDERED: VANCOMYCIN HCL 1000 MG/VIAL IV ONE (00:47)
[2022-03-26] MEDS: VANCOMYCIN HCL 1 GM/NS PREMIX 250 ML IV SCH ×2 (00:59→06:00)
[2022-03-26 06:10] LABS: BASOPHILS % (AUTO) 0.4 % (0.0-2.0); EOSINOPHILS # (AUTO) 0.3 K/uL (0.0-0.4); EOSINOPHILS % (AUTO) 2.4 % (0.0-4.0); HEMATOCRIT 43.1 % (36-54); HEMOGLOBIN 14.9 g/dL (14.0-18.0); LYMPHOCYTES # (AUTO) 2.4 K/uL (1.0-5.5); LYMPHOCYTES % (AUTO) 19.9 % (20.5-51.5); MEAN CORPUSCULAR HEMOGLOBIN 30 pg (27-31); MEAN CORPUSCULAR HGB CONC 35 % (32-36); MEAN CORPUSCULAR VOLUME 87 fL (79.0-98.0); MONOCYTES # (AUTO) 0.9 K/uL (0.0-1.0); MONOCYTES % (AUTO) 7.1 % (1.7-9.3); NEUTROPHILS # (AUTO) 8.5 K/uL (1.8-7.7); NEUTROPHILS % (AUTO) 70.2 % (40.0-70.0); PLATELET COUNT (AUTO) 216 K/uL (130-430); RED BLOOD CELL COUNT(AUTO) 4.93 MIL/uL (4.2-6.2); RED CELL DISTRIBUTION WIDTH 13.6 % (9.0-15.0); WHITE BLOOD COUNT (AUTO) 12.1 K/uL (4.8-10.8)
[2022-03-26 06:27] LABS: CALCIUM 8.3 mg/dL (8.4-11.0); CREATININE 0.81 mg/dL (0.55-1.30); PHOSPHORUS 3.7 mg/dL (2.7-4.5); POTASSIUM 3.6 mmol/L (3.5-5.1)
[2022-03-26] MEDS: HYDROmorphone 2 MG/ML VIAL IVP PRN ×2 (06:35→23:04)
[2022-03-26 08:00] VITALS: BP_SYST 144
[2022-03-26] MEDS: NACL 0.9% 1,000 ML IV SCH (11:00)
[2022-03-26] MEDS: HYDROcodone/ACETAMIN 5-325 MG TAB (NORCO/ VICODIN) PO PRN (15:37)
[2022-03-26] MEDS: VANCOMYCIN HCL 1,500 MG in NS 250 ML IV SCH ×2 (15:42→22:53)
[2022-03-26 19:44] VITALS: BP_SYST 130
[2022-03-26] MEDS: DOXYCYCLINE HYCLATE 100 MG CAPSULE PO SCH (21:30)
[2022-03-26] MEDS: ACYCLOVIR 400 MG TABLET PO SCH (22:53)
[2022-03-27 00:15] VITALS: BP_SYST 133
[2022-03-27] MEDS: NACL 0.9% 1,000 ML IV SCH ×2 (04:32→06:45)
[2022-03-27] MEDS: ACYCLOVIR 400 MG TABLET PO SCH ×2 (05:32→14:35)
[2022-03-27 05:59] LABS: BASOPHILS % (AUTO) 0.4 % (0.0-2.0); EOSINOPHILS # (AUTO) 0.3 K/uL (0.0-0.4); EOSINOPHILS % (AUTO) 3.2 % (0.0-4.0); HEMATOCRIT 41.5 % (36-54); HEMOGLOBIN 14.3 g/dL (14.0-18.0); LYMPHOCYTES % (AUTO) 21.2 % (20.5-51.5); MEAN CORPUSCULAR HEMOGLOBIN 30 pg (27-31); MEAN CORPUSCULAR HGB CONC 34 % (32-36); MEAN CORPUSCULAR VOLUME 88 fL (79.0-98.0); MONOCYTES # (AUTO) 0.8 K/uL (0.0-1.0); MONOCYTES % (AUTO) 8.3 % (1.7-9.3); NEUTROPHILS # (AUTO) 6.4 K/uL (1.8-7.7); NEUTROPHILS % (AUTO) 66.9 % (40.0-70.0); PLATELET COUNT (AUTO) 230 K/uL (130-430); RED BLOOD CELL COUNT(AUTO) 4.72 MIL/uL (4.2-6.2); RED CELL DISTRIBUTION WIDTH 13.4 % (9.0-15.0); WHITE BLOOD COUNT (AUTO) 9.5 K/uL (4.8-10.8)
[2022-03-27] MEDS: DOXYCYCLINE HYCLATE 100 MG CAPSULE PO SCH (08:37)
[2022-03-27] MEDS: HYDROmorphone 2 MG/ML VIAL IVP PRN (08:38)
[2022-03-27 08:43] VITALS: BP_SYST 150
[2022-03-27] MEDS ORDERED: SULF1TAB48 PO ×2 (09:20)
[2022-03-27] MEDS: VANCOMYCIN HCL 1,500 MG in NS 250 ML IV SCH (11:15)
[2022-03-27 12:00] VITALS: BP_SYST 135
[2022-03-27] MEDS ORDERED: LISI-209 PO (13:41)
[2022-03-27] MEDS: HYDROcodone/ACETAMIN 5-325 MG TAB (NORCO/ VICODIN) PO PRN (14:40)
[2022-03-27 16:00] VITALS: BP_SYST 135
[2022-03-27 16:28] VITALS: BP_SYST 135
[2022-03-27] MEDS ORDERED: DOXY100C PO (18:18)
[2022-03-27] MEDS ORDERED: ACYC200C31 PO (18:20)
== END 2022-03-27 19:30 | disposition home or self-care (01) | DRG 723 ==
LOC: SED 09:24 → STU 15:11 → SMU 17:10
PROVIDERS: ADMIT Student in an Organized Health Care Education/Training Program; ATTEND Student in an Organized Health Care Education/Training Program
DX: B00.89 Other herpesviral infection (principal); L03.221 Cellulitis of neck; L03.211 Cellulitis of face; D72.829 Elevated white blood cell count, unspecified; F19.10 Other psychoactive substance abuse, uncomplicated; E66.9 Obesity, unspecified; Z20.822 Contact with and (suspected) exposure to COVID-19; I10 Essential (primary) hypertension; Z79.01 Long term (current) use of anticoagulants; Z79.899 Other long term (current) drug therapy; Z68.31 Body mass index [BMI] 31.0-31.9, adult
CPT/HCPCS: 36415; 80048; 80053; 80307; 83605; 83735; 84100; 85025; 86140; 87040; 87081; 96365; 99285; J1170; J3370; J3490; J7050; J7060